=== PATIENT | female | born 1955 | race Two or more races ===

== ENCOUNTER 2019-02-21 07:53 | Outpatient (CLI) | payer OTHER | END 2019-02-21 08:30 | disposition home or self-care (01) | LOC: TOM 07:53 | DX: K56.49 Other impaction of intestine (principal); K57.92 Diverticulitis of intestine, part unspecified, without perforation or abscess without bleeding; K63.5 Polyp of colon ==

== ENCOUNTER 2021-12-05 12:45 | Outpatient (CLI) | payer OTHER | END 2021-12-05 12:51 | disposition home or self-care (01) | LOC: SONOGRAMA 12:45 | PROVIDERS: ATTEND Pathology Anatomic Pathology | DX: E03.4 Atrophy of thyroid (acquired) (principal) ==

== ENCOUNTER 2024-03-31 07:05 | Outpatient (CLI) | payer OTHER | END 2024-03-31 07:11 | disposition home or self-care (01) | LOC: TOM 07:05 | DX: Z12.11 Encounter for screening for malignant neoplasm of colon (principal); Z80.0 Family history of malignant neoplasm of digestive organs ==